=== PATIENT | male | born 1960 | race Two or more races ===

== ENCOUNTER 2023-03-24 11:28 | Emergency (ER) | payer BC, OTHER ==
[~2023-03-24] VITALS: Ht 172.7 cm; Wt 79.6 kg
[2023-03-24 12:14] VITALS: BP 120/84
[2023-03-24] MEDS ORDERED: METH-1182 PO (12:53)
[2023-03-24] MEDS ORDERED: IBUP-1456 PO (12:53)
== END 2023-03-24 13:04 | disposition home or self-care (01) ==
LOC: ER 11:28
DX: S39.012A Strain of muscle, fascia and tendon of lower back, initial encounter (principal); Z88.6 Allergy status to analgesic agent; F17.210 Nicotine dependence, cigarettes, uncomplicated; V49.9XXA Car occupant (driver) (passenger) injured in unspecified traffic accident, initial encounter; Y93.89 Activity, other specified; Y92.89 Other specified places as the place of occurrence of the external cause; Y99.8 Other external cause status
CPT/HCPCS: 72100